=== PATIENT | male | born 1980 | race Caucasian/White ===

== ENCOUNTER 2017-11-07 13:02 | Outpatient (CLI) | END 2017-11-07 13:03 | disposition home or self-care (01) ==

== ENCOUNTER 2018-01-16 19:39 | Outpatient (CLI) | payer OTHER | END 2018-01-16 19:40 | disposition home or self-care (01) | LOC: SC 19:39 | PROVIDERS: ATTEND Internal Medicine Pulmonary Disease | DX: G47.61 Periodic limb movement disorder (principal) | CPT/HCPCS: 95810 ==

== ENCOUNTER 2018-01-17 06:00 | Outpatient (CLI) | payer OTHER ==
[2018-01-17 12:16] LABS: MUDS CUTOFF CONCENTRATIONS CUTOFF CONC BELOW:
[2018-01-17 12:41] LABS: AMPHETAMINE SCREEN,URINE NEGATIVE (NEGATIVE); BENZODIAZEPINES SCREEN, URINE NEGATIVE (NEGATIVE); COCAINE SCREEN URINE NEGATIVE (NEGATIVE); METHADONE SCREEN, URINE NEGATIVE (NEGATIVE); METHAMPHETAMINES SCREEN, URINE NEGATIVE (NEGATIVE); OPIATE SCREEN, URINE NEGATIVE (NEGATIVE); OXYCODONE SCREEN, URINE NEGATIVE (NEGATIVE); PROPOXYPHENE SCREEN, URINE NEGATIVE (NEGATIVE); TRICYCLIC ANTIDEPRESSANT,URINE NEGATIVE (NEGATIVE)
== END 2018-01-17 06:01 | disposition home or self-care (01) ==
LOC: LAB.R 06:00
PROVIDERS: ATTEND Internal Medicine Pulmonary Disease
DX: G47.10 Hypersomnia, unspecified (principal)
CPT/HCPCS: 80306

== ENCOUNTER 2018-01-17 06:13 | Outpatient (CLI) | payer OTHER | END 2018-01-17 06:14 | disposition home or self-care (01) | LOC: SC 06:13 | PROVIDERS: ATTEND Internal Medicine Pulmonary Disease | DX: G47.419 Narcolepsy without cataplexy (principal) | CPT/HCPCS: 95805 ==

== ENCOUNTER 2018-02-12 09:42 | Outpatient (CLI) | payer OTHER | END 2018-02-12 09:43 | disposition home or self-care (01) | LOC: SC 09:42 | PROVIDERS: ATTEND Internal Medicine Pulmonary Disease | DX: G47.411 Narcolepsy with cataplexy (principal); G47.61 Periodic limb movement disorder | CPT/HCPCS: 99212; 99213 ==